=== PATIENT | female | born 1965 | race Caucasian/White ===

== ENCOUNTER 2024-09-29 03:14 | Emergency (ER) | payer BC, SELFPAY ==
[2024-09-29 03:16] VITALS: BP 152/98
[2024-09-29 03:29] VITALS: BMI 23.1
--- NOTE | 2024-09-29 03:36 | ED.GENMED ---
History of Present Illness
General
Chief Complaint: Oral/Mouth Problem
Source: patient and spouse
Time Seen by Provider: 09/29/24 03:29
History of Present Illness
History of Present Illness:
59-year-old female presents to the emergency room complaining of swelling of her tongue and left neck. Patient went to bed feeling fine. She was awoken from sleep by the symptoms. They seem to develop suddenly. She denies any dental pain. She
takes Synthroid for hypothyroidism but denies any other medications. She had a rash on her lower extremities which was thought to be a bacterial rash around [place]. However this cleared up. She has not been exposed anything that she would
expect to cause an allergic reaction. No family history of angioedema as far she knows.
Past History
Past History
ED Past Medical History: Hypothyroidism
ED Past Surgical History: Gynecological and Orthopedic
Social History
Tobacco: Non-smoker
Alcohol: Occasional
Personal:
Living: with family
Employment: Employed
Family History
Family History: Other (Noncontributory)
Phy Exam
Physical Exam
Physical Exam:
General: Awake, Alert, Oriented X3. No acute distress.
Vitals: unremarkable
Head: Atraumatic
Eyes: Pupils equal, EOMI
Throat: Airway intact, no exudates, perhaps mild swelling of the tongue. Posterior pharynx is open. No angioedema of the palate. No tenderness to palpation under the tongue. There is swelling noted to the left lateral neck. This is tender to
palpation.
Neck: Trachea midline
Lungs: Clear and equal b/l
Heart: Regular rate, no murmurs
Abd: Soft, Nontender, No pulsatile mass
Neuro: Nonfocal
Skin: Warm, dry, no rash
Extremities: pulses equal b/l, no edema
Course
Orders/Labs/Results
Orders:
Orders
09/29/24 03:35
CT Neck With Iv Contrast Urgent
Comment:
Reason For Exam: left neck swelling
Dexamethasone Sod Phosphate [Decadron] 10 mg IV NOW STA
Diphenhydramine [Benadryl] 50 mg IV NOW STA
Famotidine [Pepcid] 20 mg IV NOW STA
09/29/24 03:45
Basic Metabolic Panel Urgent
TSH Reflex To Free T4 Urgent
09/29/24 03:46
Complete Blood Count/With Diff Urgent
09/29/24 03:48
Add On- LAB Urgent
Tests Added?: TSH
09/29/24 05:24
Amoxicillin 875 mg/Clav 125 mg [Augmentin 875 mg/125 mg] 1 tablet PO NOW STA
Abnormal Lab Results
09/29/24 09/29/24
03:45 03:46
Absolute Monos (auto) 0.7 H 10^3/uL
(0.1-0.6)
Neutrophils % 37.3 L %
(42.2-75.2)
Monocytes % 9.7 H %
(1.7-9.3)
BUN 24 H mg/dl
(7-17)
Glucose 108 H mg/dl
(70-99)
09/29/24 03:46
09/29/24 03:45
Vital Signs
Initial and Last Documented VS:
Initial Vital Signs
Pulse Resp BP Pulse Ox
68 20 152/98 98
09/29/24 03:16 09/29/24 03:16 09/29/24 03:16 09/29/24 03:16
Last Documented Vital Signs
Temp Pulse Resp BP Pulse Ox
97.6 F 61 18 152/98 97
09/29/24 05:30 09/29/24 05:30 09/29/24 05:30 09/29/24 03:16 09/29/24 05:30
MDM/Problems Addressed
Differential Diagnosis Includes:
Angioedema, neck mass, neck abscess, salivary stone, mumps
MDM/Problems Addressed:
Patient presents with swallowing left neck. No fever no prodromal symptoms. CT shows inflammation of the salivary gland. Patient has been immunized for mumps. She does not have any anorexia, fever or other viral type symptoms to suggest mumps.
Will treat with Augmentin for salivary gland infection. Certainly a salivary stone could also cause this presentation. Recommend follow-up with ENT
*Radiology
Radiology exam reviewed: radiology read reviewed
*Pulse Oximetry
Patient hypoxic: no
*Critical Care Note
Total Time (30-74mins, 75-104mins- exclusive of procedures): Not Applicable
ED Attending Note
-
Portions of this chart may have been created with voice recognition software.� Occasional wrong word or��sound alike� substitutions may have occurred due to the inherent limitations of voice recognition software.
Discharge Plan
Departure
Patient Disposition: Home (Routine Discharge)
Date of Disposition: 09/29/24
Time of Disposition: 05:24
Patient with high blood pressure during this ER visit?: Yes
Condition: Good
Discharge Problem:
Sialoadenitis of submandibular gland, Salivary duct obstruction
Instructions: Salivary Gland Infection, Salivary Gland Stones, BLOOD PRESSURE
Prescriptions:
New
amoxicillin-pot clavulanate 875-125 mg tablet
1 tab PO BID Qty: 14 0RF
No Action
levothyroxine 112 MCG tablet
112 mcg PO DAILY
Referrals:
Esvin Jones PA [Family Provider] -
Grisel Peng MD [Active] -
Interventions
Interventions:
ED- Fall Risk Assessment Last Done: 09/29/24 04:12
*ED COVID-19 Vaccine History Last Done: 09/29/24 04:10
Discharge Date and Time
Print Language: AMHARIC
[2024-09-29] MEDS: PEPCID 20 MG IV (03:38)
[2024-09-29] MEDS: DECADRON 10 MG IV (03:38)
[2024-09-29] MEDS: BENADRYL 50 MG IV (03:38)
[2024-09-29 04:02] LABS: % Basophils 0.9 % (0-2); % Eosinophils 3.1 % (0-6); % Immature Granulocytes 0.3 % (0-0.5); % Lymphocytes 48.7 % (20.5-51.1); % Monocytes 9.7 % (1.7-9.3); % Neutrophils 37.3 % (42.2-75.2); Absolute Basophils 0.1 10^3/uL (0-0.2); Absolute Eosinophils 0.2 10^3/uL (0-0.7); Absolute Lymphocytes 3.3 10^3/uL (1.2-3.4); Absolute Monocytes 0.7 10^3/uL (0.1-0.6); Absolute Neutrophils 2.5 10^3/uL (1.4-6.5); Hematocrit 38.7 % (37.0-47.0); Mean Corp Hgb Conc. 33.6 g/dL (33.0-37.0); Mean Corpuscular Hgb 30.6 pg (27.0-31.0); Mean Corpuscular Volume 91.1 fL (81.0-99.0); Mean Platelet Volume 9.4 fL (7.4-10.4); Nucleated Red Blood Cells % 0 %; Platelet Count 230 10^3/uL (130-400); Red Blood Cell Count 4.25 10^6/uL (4.20-5.40); Red Cell Dist. Width 12.4 % (11.5-14.5); White Blood Cell Count 6.7 10^3/uL (4.8-10.8)
[2024-09-29 04:18] LABS: Blood Urea Nitrogen 24 mg/dl (7-17); Calcium 9.1 mg/dl (8.4-10.2); Carbon Dioxide 30 mmol/L (22-30); Chloride 102 mmol/L (98-107); Estimated Creatinine Clearance 116 ml/min; Glucose 108 mg/dl (70-99); Potassium 4.1 mmol/L (3.5-5.1); Sodium 140 mmol/L (135-145); eGFR > 60.00
[2024-09-29 04:49] LABS: TSH Reflex To Free T4 1.52 uIU/ml (0.47-4.68)
[2024-09-29] MEDS: AUGMENTIN 875 MG/125 MG 1 TABLET PO (05:37)
== END 2024-09-29 05:48 | disposition home or self-care (01) ==
LOC: EMR 03:14
PROVIDERS: EMERGENCY PHYSICIAN Emergency Medicine; FAMILY PHYSICIAN Physician Assistant Medical
DX: K11.20 Sialoadenitis, unspecified (principal); E03.9 Hypothyroidism, unspecified; Z79.899 Other long term (current) drug therapy
CPT/HCPCS: 99284; 96374; 96375; 70491; 80048; 84443; 85025; Q9967